=== PATIENT | female | born 1960 | race African-American/Black ===

== ENCOUNTER 2017-12-08 07:34 | Outpatient (CLI) | payer OTHER ==
--- NOTE | 2017-12-08 09:23 | Cat Scan Report ---
CT ABDOMEN PELVIS WITHOUT CONTRAST: HISTORY: Urinary tract infection site not specified. COMPARISON: none. TECHNIQUE: Helical CT in 1.25mm intervals without IV contrast. Sagittal and coronal reconstructions. FINDINGS: Lung bases: Normal. Liver: Normal. Biliary system: Normal. Pancreas: Normal. Spleen: Normal. Kidneys/ureters/bladder: The kidneys are normal size and position. A 3.4 cm simple cyst is identified in the mid right kidney. No evidence for mass or hydronephrosis. 4 punctate calyceal stones are identified in the left kidney. 2 punctate calyceal stones are identified in the mid right kidney. No evidence for ureteral stones. The bladder is partially empty but unremarkable. Adrenal glands: Normal. Aorta: Normal. Intestines: Within normal limits given no oral contrast was administered. Appendix: Normal. Pelvic viscera: Normal. Ascites: None. Adenopathy: None. Musculoskeletal: Normal. IMPRESSION: Punctate bilateral renal calyceal stones. No ureteral stones or hydronephrosis. 3.4 cm simple cyst in the mid right kidney.
== END 2017-12-08 07:35 | disposition home or self-care (01) ==
LOC: CT 07:34 → EDSEX 08:00
PROVIDERS: ATTEND Urology
DX: N28.1 Cyst of kidney, acquired (principal)
CPT/HCPCS: 74176